=== PATIENT | male | born 1970 | race Two or more races ===

== ENCOUNTER 2020-09-10 20:57 | Emergency (ER) | payer SELFPAY ==
[2020-09-10] MEDS ORDERED: KETOROLAC TROMETHAMINE 60 MG/2 ML SDV IM ONE (21:05)
--- NOTE | 2020-09-10 21:06 | ER Document Report ---
ED Medical Screen (RME) - General Stated Complaint: POSSIBLE LOWER BACK INJURY Time Seen by Provider: 09/10/20 21:04 Notes: HPI: 49-year-old male brought for evaluation of worsened back pain over the last 2 days. Patient with history of chronic back pain issues. Has been followed by pain management in [place] recently moved down here. Patient was doing chores with the family 2 days ago and pulled on something and felt sudden increased back pain. No incontinence of urine or bowel. Today again went to bend over and "locked in position". Complains of pain across the entire low back no perineal numbness PHYSICAL EXAMINATION: Limited exam by positioning in triage but patient with tenderness across the lumbar back bilaterally. I have greeted and performed a rapid initial assessment of this patient. A comprehensive ED assessment and evaluation of the patient, analysis of test results and completion of medical decision making process will be conducted by an additional ED providers.
--- NOTE | 2020-09-10 23:22 | RADIOLOGY REPORT (SQ) ---
Lumbar spine x-ray five views on 09/10/2020 at 10:40 PM Clinical indications: Low back pain after injury COMPARISON: None FINDINGS: The lumbar spine is well aligned. Minimal degenerative disc disease is noted in the mid lumbar spine. There are no fractures. No other bony abnormality is noted. IMPRESSION: No acute abnormality.
--- NOTE | 2020-09-11 00:54 | ER Document Report ---
ED General - General Chief Complaint: Back Pain Stated Complaint: POSSIBLE LOWER BACK INJURY Time Seen by Provider: 09/10/20 21:04 Primary Care Provider: [facility] [Provider Group] - Follow up in 3-5 days (for primary care follow up) - HPI Notes: 49-year-old male with past medical history for anxiety and chronic low back pain to the emergency department with son-in-law with complaints of several days of back pain. This started while he was helping his son-in-law to work around her home. However, in the past 2 days he has had worsening pain. Son-in-law states that when he bends over and squat he gets locked with his back. Denies some pain radiating down the right leg. Denies any saddle paresthesia, bladder or bowel incontinence, urinary retention, fevers, chills, IV drug abuse. He just recently moved to the area from [place] and is awaiting his Medicaid to cross over state lines. - Related Data Allergies/Adverse Reactions: No Known Allergies Allergy (Unverified 09/11/20 01:21) Home Medications: anxiety med Past Medical History - General Information source: Patient - Social History Smoking Status: Current Every Day Smoker Frequency of alcohol use: None Drug Abuse: None Family History: Reviewed & Not Pertinent Review of Systems - Review of Systems Constitutional: denies: Chills, Fever EENT: No symptoms reported Cardiovascular: denies: Chest pain, Palpitations, Heart racing, Dizziness, Lightheaded Respiratory: denies: Cough, Short of breath Gastrointestinal: denies: Abdominal pain, Diarrhea, Nausea, Vomiting Genitourinary: denies: Burning, Dysuria, Flank pain, Incontinence, Retention Musculoskeletal: Back pain - See HPI Skin: No symptoms reported Neurological/Psychological: No symptoms reported -: Yes All other systems reviewed and negative Physical Exam - Vital signs Vitals: Temp Pulse Resp BP Pulse Ox 99.1 F 115 H 19 135/90 H 97 09/10/20 21:05 09/10/20 21:05 09/10/20 21:05 09/10/20 21:05 09/10/20 21:05 Interpretation: Normal - General General appearance: Appears well, Alert In distress: None - HEENT Head: Normocephalic, Atraumatic Eyes: Normal Pupils: PERRL Neck: Normal, Supple - Respiratory Respiratory status: No respiratory distress Chest status: Nontender Breath sounds: Normal. No: Rales, Rhonchi, Wheezing Chest palpation: Normal - Cardiovascular Rhythm: Regular Heart sounds: Normal auscultation Murmur: No - Abdominal Inspection: Normal Distension: No distension Bowel sounds: Normal Tenderness: Nontender. No: Tender, McBurney's point, Parker's sign, Guarding, Rebound Organomegaly: No organomegaly - Back Back: Tender Notes: Tenderness to palpation to the midline lumbar spine with noted positive right straight leg raise. Negative straight leg raise. - Neurological Neuro grossly intact: Yes Cognition: Normal Orientation: AAOx4 [place] Coma Scale Eye Opening: Spontaneous Eddie Coma Scale Verbal: Oriented [place] Coma Scale Motor: Obeys Commands Eddie Coma Scale Total: 15 Speech: Normal Cranial nerves: Normal Cerebellar coordination: Normal, Other - Normal finger-nose bilaterally, normal [id number] bilaterally. Motor strength normal: LUE, RUE, LLE, RLE Additional motor exam normals: Equal hand packer Sensory: Normal - Psychological Associated symptoms: Normal affect, Normal mood - Skin Skin Temperature: Warm Skin Moisture: Dry Skin Color: Normal Course - Re-evaluation Re-evalutation: Impression: Lumbago with sciatica. Will send home with muscle relaxant, Medrol Dosepak. He states that the Toradol helped him quite a bit today. Will send home with NSAIDs as well. I have given him information for the [facility] to help with follow-up until he has his Medicaid comes through in [place]. Encouraged him to return if any worsening symptoms such as bladder or bowel incontinence, saddle paresthesia, urinary retention, fevers. Patient and son-in-law agree with the plan. - Vital Signs Vital signs: Temp Pulse Resp BP Pulse Ox 98 F 81 15 120/63 96 09/11/20 01:39 09/11/20 01:39 09/11/20 01:39 09/11/20 01:39 09/11/20 01:39 - Diagnostic Test Radiology reviewed: Image reviewed, Reports reviewed Discharge - Discharge Clinical Impression: Lumbago Qualifiers: Chronicity: acute Back pain laterality: right Sciatica presence: with sciatica Sciatica laterality: sciatica of right side Qualified Code(s): M54.41 - Lumbago with sciatica, right side Condition: Stable Disposition: HOME, SELF-CARE Instructions: Sciatica ([facility]) Additional Instructions: Take medicines as prescribed. Return if worsening pain or bowel incontinence or urinary retention. Follow with [facility] clinic until your medicaid comes through. You may use Johnnie Piedra - our family caseworker, to help with follow up if you have difficulty. Her number is [phone]. Prescriptions: Cyclobenzaprine HCl [Flexeril 10 mg Tablet] 10 mg PO TID #21 tablet Methylprednisolone [Medrol Dosepack (4 mg/Tab) 21 Tab/Dosepak] 4 mg PO ASDIR PRN #21 tab.ds.pk PRN Reason: Diclofenac Sodium [Voltaren 25 Mg Tablet] 25 mg PO BID #20 tablet. Referrals: [facility] [Provider Group] - Follow up in 3-5 days (for primary care follow up)
[2020-09-11] MEDS ORDERED: CYCLOBENZAPRINE HCL 10 MG TABLET PO ONE (01:10)
[2020-09-11 01:48] VITALS: BP 120/63
== END 2020-09-11 01:39 | disposition home or self-care (01) ==
LOC: ER 20:57
DX: M54.41 Lumbago with sciatica, right side (principal); M54.9 Dorsalgia, unspecified; F41.9 Anxiety disorder, unspecified; F17.200 Nicotine dependence, unspecified, uncomplicated; Z79.899 Other long term (current) drug therapy
CPT/HCPCS: 99284; 96372; 72110; J1885